=== PATIENT | female | born 1970 | race Caucasian/White ===

== ENCOUNTER 2018-07-06 21:57 | Inpatient (IN) | payer MEDICAID ==
--- NOTE | 2018-07-06 22:04 | EDPHY ---
H & P Source: Patient, EMS Time Seen by Provider: 07/06/18 22:04 HPI/ROS: HPI CHIEF COMPLAINT: Alcohol intoxication, bipolar disorder HISTORY OF PRESENT ILLNESS: Patient 47-year-old female she staying at a local hotel, the hotel staff called 911 for EMS to check on her as they noticed her being in the lobby a multiple times getting food and appeared highly intoxicated acting strange. According to EMS she is from [place]. She just the past few days have been here. According to EMS when they entered hotel room she had a large amount of liquor bottles throughout her tell room. She has been drinking alcohol. She arrived to the emergency room and is highly intoxicated with alcohol however refusing to answer any of my questions. Reported by EMS that she has history bipolar possibly be off of her medications. Past Medical History: Unknown except per report EMS bipolar disorder, alcoholism Past Surgical History: No recent surgical history Social History: Alcohol this evening. From [place]. Family History: Noncontributory ROS REVIEW OF SYSTEMS: 10 Systems were reviewed and negative with the exception of the elements mentioned in the history of present illness. Exam Constitutional intoxicated, smells of alcohol triage nursing summary reviewed, vital signs reviewed, awake/alert. Eyes normal conjunctivae and sclera, EOMI, PERRLA. HENT normal inspection, atraumatic, moist mucus membranes, no epistaxis, neck supple/ no meningismus, no raccoon eyes. Respiratory clear to auscultation bilaterally, normal breath sounds, no respiratory distress, no wheezing. Cardiovascular rate normal, regular rhythm, no murmur, no edema, distal pulses normal. Gastrointestinal soft, non-tender, no rebound, no guarding, normal bowel sounds, no distension, no pulsatile mass. Genitourinary no CVA tenderness. Musculoskeletal no midline vertebral tenderness, full range of motion, no calf swelling, no tenderness of extremities, no meningismus, good pulses, neurovascularly intact. Skin pink, warm, & dry, no rash, skin atraumatic. Neurologic awake, alert and oriented x 3, AAOx3, moves all 4 extremities equally, motor intact, sensory intact, CN II-XII intact, normal cerebellar, normal vision, slurring her speech intoxicated. Psychiatric normal mood/affect. Heme/Lymph/Immune no lymphadenopathy. Differential Diagnosis: Includes but is not limited to in a particular order acute alcohol intoxication, substance abuse, polysubstance abuse, drug intoxication mood disorder, damien, bipolar disorder Medical Decision Making: Plan for this patient IV establishment blood draw, drug screen, alcohol level, mental health evaluation. Re-evaluation: According to nursing staff mom called from [place] 1 states that she has extensive history bipolar, is recovering alcoholic did not recommend that she travels however she is here for an arc conference and traveled against her mom's wishes she thinks she has to mentally unstable to travel. Blood work reviewed electrolytes appropriate. [place] level very low. Serum alcohol level pending. Serum alcohol level 354. (Leonard Raman) Constitutional: Initial Vital Signs Temperature (C) 36.9 C 07/06/18 22:01 Heart Rate 90 07/06/18 22:01 Respiratory Rate 16 07/06/18 22:01 Blood Pressure 147/95 H 07/06/18 22:01 O2 Sat (%) 95 07/06/18 22:01 O2 Delivery Mode Room Air Allergies/Adverse Reactions: No Known Allergies Allergy (Unverified 07/06/18 22:06) Home Medications: Medication Instructions Recorded Clonidine 07/06/18 [place] Horse Carbonate 07/06/18 MIRTAZAPINE 07/06/18 traZODone 07/06/18 Medical Decision Making ED Course/Re-evaluation: 0700AM: Signed over to m1 hold. Needs eval. (Leonard Raman) I took over care of this patient at 7:00 a.m.. This patient is on an M1 hold for acute psychosis and alcohol intoxication, awaiting evaluation by [facility]. (Gina Duvall) Other Provider: Care assumed at 2:[address] Duvall with plan for inpatient placement , the patient presenting with alcohol intoxication but bipolar disorder. 1656: The patient will be transferred to [facility] for inpatient psychiatric hospital bed not available at this facility, in stable condition; accepting physician is Dr. Chandan Neri. EMTALA form completed. (Matt Corcoran) - Data Points Laboratory Results: Laboratory Results 07/06/18 22:51 07/06/18 22:51 Medications Given: Discontinued Medications Chlordiazepoxide HCl (Librium) 50 mg PO EDNOW ONE Stop: 07/07/18 07:35 Last Admin: 07/07/18 08:10 Dose: 50 mg Chlordiazepoxide HCl (Librium) 50 mg PO EDNOW ONE Stop: 07/07/18 16:14 Last Admin: 07/07/18 16:14 Dose: 50 mg Ibuprofen (Motrin) 600 mg PO EDNOW ONE Stop: 07/07/18 13:46 Last Admin: 07/07/18 13:56 Dose: 600 mg Lorazepam (Ativan) 1 mg PO EDNOW ONE Stop: 07/07/18 11:29 Last Admin: 07/07/18 11:48 Dose: 1 mg Olanzapine (Olanzapine) 5 mg PO ONCE ONE Stop: 07/06/18 23:37 Last Admin: 07/06/18 23:37 Dose: 5 mg Departure - Departure Disposition: [facility] Clinical Impression: Alcoholic intoxication Qualifiers: Complication of substance-induced condition: uncomplicated Qualified Code(s): F10.920 - Alcohol use, unspecified with intoxication, uncomplicated Bipolar disorder Qualifiers: Active/Remission status: currently active Current bipolar episode type: manic Current episode severity: moderate Qualified Code(s): F31.12 - Bipolar disorder , current episode manic without psychotic features, moderate Condition: Fair Referrals: Patient,NotPresent [Unknown] - As per Instructions
[2018-07-06 22:59] LABS: PLATELET COUNT 361 10^3/uL (150-400)
[2018-07-06] MEDS ORDERED: OLANZapine 5 MG TAB ONE (23:29)
[2018-07-06] MEDS ORDERED: OLANZapine 5 MG TAB PO ONE (23:36)
[2018-07-07] MEDS ORDERED: chlordiazePOXIDE 25 MG CAP PO ONE ×2 (07:34→16:13)
[2018-07-07] MEDS ORDERED: LORazepam 1 MG TAB PO ONE (11:28)
[2018-07-07] MEDS ORDERED: LORazepam 1 MG TAB ONE (11:29)
--- NOTE | 2018-07-07 12:53 | ASMTTLCEVL ---
TLC Evaluation - Basic Information Evaluation Start Date and 07/07/2018 10:00 AM Time Hospital Status Answers: M1 Hold 72-hr M1 Hold Start Date 07/06/2018 11:33 PM and Time Patient statement Notes: Im an alcoholic. Katja been to many Psychiatrists nothing has helped me. I just had 45 days of sobriety and relapsed on I believe because my Doctor took me off of Vivance cold turkey starting . Im ADHD, maybe bipolar disorder. I get more depressed, not the highs. I dont have damien except when I am drinking Narrative Notes: Pt is a 47 year old female per ED report was staying at a local hotel, the hotel staff called 911 for the EMS to check on her as they noticed her being in the lobby multiple times getting food and appeared highly intoxicated and acting strangely. According to EMS she is from [place]. She just the past few days traveled to [facility]. According to EMS when they entered her hotel room she had a large amount of liquor bottles throughout her room. Pt arrived to the [facility] ED in a highly intoxicated state and was refusing to answer any questions upon her arrival. According to the nursing staff pts mother had called from [place] stating that she has an extensive history of bipolar disorder, is a recovering alcoholic and mother had recommended she not travel however she is here for a conference and traveled against her mothers wishes since mother had felt she was not mentally stable to travel. Pts BAL was .354 at 22:51 on 07/06/18. Pts lithium level was 0.2. Pt was seen for clinical evaluation when her Breathalyzer was below .08 Per M1 hold pt has bipolar disorder and is off her medications presenting in a psychotic state. Pts mother has great concerns for pt.s mental health and safety. Diagnosis History Notes: Pt reported she has been diagnosed with bipolar disorder and also in the past ADHD. Prior suicide attempts Notes: Pt denies any past history of any suicide attempts. Pt did report last night she was expressing suicidal thoughts. Prior hospitalizations Notes: Pt stated she has been hospitalized about 7 times for alcohol and depression including 3 prior rehabs. Treatment Responses Notes: Pt stated she does not accept her bipolar dx. Per mother pt has been to numerous therapists and Psychiatrists throughout her life. History of violence Notes: Pt stated she has been hospitalized about 7 times for alcohol and depression including 3 prior rehabs. Psychiatrist: Dr Jacquelyn Wilder Medications (name, dosage, route, freq uency) Notes: Pts medications include: trazodone, mirtazapine, lithium carbonate, clonidine Allergies/Reaction Notes: No known allergies or drug interactions. Sleep Notes: Pt reported abnormal sleep pattern recently sleeping excessively spending up to 12-14 hours a night. Appetite Notes: Pt indicated since going off Vivance she has been eating sweets constantly and feels she has gained weight even in a few days. Medical/Surgical history Notes: Pt denied any medical problems. Substance use history (frequency, intensity, his tory, duration) Notes: Pt reported she started drinking on a regular basis at the age of 30. Her drinking as reported by pt became problematic about 8 years ago. Pt denied other substance use/abuse except for alcohol. Family composition Notes: Pt is single, never . She has 2 sisters, one of which is her twin and another brother. Her siblings reside on the [facility]. Pts parents are and reside in [place]. Need for family Answers: Yes participation in patient's care Family psychiatric/substance abuse history Notes: Pt reported her mother has a hx of major depression, possibly bipolar disorder. Developmental history Notes: Pt was born and raised on a farm in [place]. Pt denied any childhood diagnosis including no diagnosis of ADD or ADHD. Pt denied any hx of any childhood physical, emotional or sexual abuse. Abuse concerns Answers: None Marital status/children Notes: Pt is single, never with no children. Living situation Notes: Pt now lives on her parents farm in a single family home on the farm property. Previously she had lived in [place] for about 20 years. Sexual history/orientation Notes: Pt is not currently in a relationship. Peer support/family strengths Notes: Pt reported feeling as if she has some friends who are supportive. Education level/history Notes: Pt stated she was an average student academically and her belief is undiagnosed ADD or ADHD may of impacted her academic performance. Work history Notes: Pt works as a graphic technician. Pt reported she has not had any invoices for work for the past 2 years. Notes: No hx. Legal Notes: Pt reported she was recently arrested for failing to show up at court for a DUI arrest court appearance. Pt stated she had just got her license returned. She gave a hx of 2 DUI arrests. Jain/Spiritual Notes: Pt denied any anabaptist or spiritual beliefs that would interfere with his treatment. Leisure Notes: Pt stated she enjoys working with her hands especially doing wood projects. Collateral Notes: Collateral inform was obtained from pt.'s mother, Mare @ [phone]. Mother expressed deep concerns about pt's safety related both to alcohol abuse and mood disorder which significantly impacts pt's lifestyle. Mother was in agreement pt is in need of inpt MH treatment. Mother described pt.'s erratic, impulsive behavior and high risk lifestyle including incidents when she would walk barefoot in freezing temputures or jump into a smallwood wiht all her clothes on. Patient's strengths Answers: Artistic/Creative/Musical (Please select at least TWO strengths): Intelligent Supportive Family TLC Evaluation - Mental Status Exam Appearance: Answers: Disheveled Eye Contact: Answers: Intermittent Mood: Answers: Elevated Irritable Affect: Answers: Anxious Apprehensive Congruent w/ Mood Distracted Expansive Guarded Hyperactive Indifferent Labile Nervous Sad Behavior: Answers: Cooperative Guarded Impulsive Restless Speech: Answers: Coherent Dramatic Excessive Hyperverbal Pressured Thought Process: Answers: Disorganized Racing Thoughts Tangential Insight: Answers: Poor Judgement: Answers: Poor Manic Signs/Symptoms Answers: Distractibility Grandiosity Impulsivity Irritability Mood Swings Pressured Speech Racing Thoughts Depression Answers: Difficulty Concentrating Signs/Symptoms: Diminished Interest Diminished Pleasure Withdrawn Worthlessness Anxiety Signs/Symptoms Answers: Generalized Anxiety Hallucinations: Answers: None Current Stage of Change Answers: Precontemplation Pt reported to have Answers: Yes suicidal/self-injuring ideation/behavior? Pt reported to be making Answers: Yes suicidal/self-injuring threats? Pt reported to have Answers: No aggression/assault ideation/behavior? Pt reported to be making Answers: No aggression/assault threats? Pt exhibits inability to Answers: No care for self/grave disability? Ideation/behavior is Answers: No chronic? Patient has a specific Answers: No plan? Ideation has Answers: No delusional/hallucinatory content? History of Answers: No suicidal/self-injuring ideation, behavior, or threats? History of Answers: No aggressive/assaultive ideation, behavior, or threats? History of serious Answers: No physical harm to self/others while in treatment setting? TLC Evaluation - Suicide/Homicide Risk Suicide Risk Factors: Answers: Agitation Alcohol/Heavy Drug Use Anxiety/Panic, Severe Bipolar Disorder Hopelessness Impulsivity Intoxication Rapid Mood Shifts None Current Suicidal Answers: No Ideation? Current Suicidal Ideation Answers: Yes in the Past 48 Hours? Current Suicidal Ideation Answers: No in the Past Month? Suicide Internal Answers: Absence of Psychosis Protective Factors: Suicide External Answers: Responsibility to Pets Protective Factors: Ranking of patient's Answers: Moderate suicidal risk: Ranking of patient's Answers: Low homicidal risk: TLC Evaluation - Wrap-up BDI Total Score: 23 BDI Question #2 Score: 1 BDI Question #9 Score: 0 BSS Total Score: 0 AXIS I Diagnosis (include DSM-V and ICD-10 codes), must also be entered in [employer], which is the source of truth. Notes: Bipolar I Disorder, current or most recent episode depressed, severe 296.53 (F31.4) Alcohol Use Disorder, severe 303.90 (F10.20) Evaluation End Date and 07/07/2018 12:45 PM Time (HH:MM): Date Signed: 07/07/2018 12:53 PM Electronically Signed By:Fe Horn
[2018-07-07] MEDS ORDERED: IBUPROFEN 600 MG TAB PO ONE ×2 (13:30→13:45)
[2018-07-07] MEDS ORDERED: THIAMINE HCL 100 MG TAB ONE (13:31)
[2018-07-07] MEDS ORDERED: chlordiazePOXIDE 25 MG CAP ONE (16:04)
--- NOTE | 2018-07-07 16:21 | ASMTTCLDSP ---
TLC Discharge Disposition Disposition Notes: Notes: In consultation with ED Physician, Damaris Marcial and on-call Psychiatrist, Dr Chandan Neri both concurred that pt appears to meet 27-65 criteria requiring psychiatric hospitalization as pt appears to be at risk of harm to self due to a mental illness condition. Discharge Concerns/Recommendations: Notes: Pt will be admitted to 3 Was patient given the Answers: Yes Inpatient Behavioral Health Prohibited Belongings List while in the ED? For inpatient Chandan Neri admission, the following psychiatrist agreed to accept patient for admission to Behavioral Health ([facility]): Type of Hold: Answers: M1/72-hour Hold Hold initiated by: Answers: ED Physician Date Signed: 07/07/2018 04:20 PM Electronically Signed By:Fe Horn
[2018-07-07] MEDS ORDERED: NICOTINE POLACRILEX 2 MG GUM B PRN (19:51)
[2018-07-07] MEDS ORDERED: MAG HYDROX/AL HYDROX/SIMETH 30 ML UDCUP PO PRN (19:51)
[2018-07-07] MEDS ORDERED: MAGNESIUM HYDROXIDE 30 ML UDCUP PO PRN (19:51)
[2018-07-07] MEDS ORDERED: ACETAMINOPHEN 325 MG TAB PO PRN (19:51)
[2018-07-07] MEDS ORDERED: OLANZapine DISINTEGR 10 MG TAB PO PRN (19:51)
[2018-07-07] MEDS ORDERED: PROMETHAZINE HCL 25 MG TAB PO PRN (19:53)
[2018-07-07] MEDS ORDERED: chlordiazePOXIDE 25 MG CAP PO PRN (19:53)
[2018-07-07] MEDS ORDERED: THIAMINE HCL 100 MG TAB PO ONE (19:53)
[2018-07-07] MEDS ORDERED: IBUPROFEN 200 MG TAB PO PRN (19:53)
[2018-07-07] MEDS ORDERED: PROMETHAZINE HCL 25 MG SUPPR PR PRN (19:53)
[2018-07-07] MEDS ORDERED: LORazepam 0.5 MG TAB PO PRN (20:23)
--- NOTE | 2018-07-07 21:57 | GCON ---
The patient is a pleasant 47-year-old female with a history of anxiety, depression, and alcoholism, calvin davenport was brought in gravely disabled and acutely intoxicated yesterday. She had been living in a hotel . She currently lives in [place], but was in [place] to attend to some business matters. She was broug ht in by people who felt that she was intoxicated far beyond the point of safety. When I speak with the patient, she has been in the hospital for about 24 hours and she is currently sobered up and bein g treated for alcohol withdrawal. She has had alcohol withdrawal without seizures in the past. Michael r been jaundiced. She describes her urge to drink is largely driven by anxiety and depression. It sounds like years ag o, living in [place] she began to drink heavily in conjunction with her job, and with her comorbi d mental illness it just got worse. No recent fever, chills, cough, sputum, nausea, vomiting, diarrh ea. REVIEW OF SYSTEMS: Complete 10-point review of systems conducted and negative except as noted in the HPI. PAST MEDICAL HISTORY: Depression, anxiety, alcoholism. ALLERGIES: No known drug allergies. SOCIAL HISTORY: Alcohol as in the HPI. No drugs. No tobacco. Currently living in [place]. HOME MEDICATIONS: Clonidine, lithium carbonate, mirtazapine, and trazodone. FAMILY HISTORY: Reviewed and unremarkable. PHYSICAL EXAMINATION: VITAL SIGNS: Temp 37, blood pressure 159/85, pulse 90, breathing 16 times a m inute, 97% on room air. GENERAL: No acute distress. HEENT: Sclerae are anicteric. Oropharynx alvin ar. Mucous membranes moist. NECK: Supple. No lymphadenopathy or JVD. LUNGS: Clear to auscultati on bilaterally. HEART: S1, S2. ABDOMEN: Soft, nontender, nondistended. LOWER EXTREMITIES: Witho ut edema. Calves nontender. SKIN: Without rash. NEUROLOGIC: Nonfocal. LABS: Tox screen is negative other than an alcohol level of 354. Sodium 141, potassium 3.9, chlorid e 105, bicarb 23, BUN 12, creatinine 0.7, glucose 90. Beta hCG is negative. CBC: White count 8, he matocrit 41, MCV is low at 81.3, platelets are 361,000. I discussed the case with Leonard Raman MD. ASSESSMENT/PLAN: A 47-year-old female with alcoholism and anxiety here, gravely disabled. 1. Anxiety. I think this is somewhat crippling anxiety and is probably largely the impetus behind h er alcohol use. She is going to be hospitalized at [facility] for further management. 2. Alcohol use. The patient was very intoxicated, was what got her here. She has been treated with success with Librium. I might recommend continuing this on a daily basis. I will not write for it now. She does not appear to need it and she declined it. 3. Microcytosis, probably due for iron studies. This can be attended once she has been discharged f [facility]. 4. Hypertension. She is in mild alcohol withdrawal. I would follow. Thank you for this consultation. Hospital Medicine will not follow. /[id number]/MODL
[2018-07-07] MEDS ORDERED: MELATONIN 3 MG TAB PO PRN (22:06)
[2018-07-07] MEDS ORDERED: traZODone 50 MG TAB PO PRN (22:06)
[2018-07-07] MEDS ORDERED: hydrOXYzine HCL 25 MG TAB PO PRN (22:06)
[2018-07-08] MEDS: THIAMINE HCL 100 MG TAB PO SCH (10:54)
[2018-07-08] MEDS: MULTIVITAMINS 1 EACH TAB PO SCH (10:54)
[2018-07-08] MEDS: OMEGA-3 FATTY ACIDS 1,000 MG CAP PO SCH (10:54)
[2018-07-08] MEDS: FOLIC ACID 1 MG TAB PO SCH (10:55)
--- NOTE | 2018-07-08 11:37 | ASMTBHMTP ---
Master Treatment Plan Master Treatment Plan Answers: Mood Instability without for: Psychosis Date: 07/08/2018 Diagnosis on Admission: Bipolar I Disorder Expected length of stay: 3-5 Days Reason for admission: Notes: Per TLC Evaluation - Pt. is a 47 year old female per ED report was staying at a local hotel, the hotel staff called 911 for the EMS to check on her as they noticed her being in the lobby multiple times getting food and appeared highly intoxicated and acting strangely. According to EMS she is from [place]. She in just the past few days traveled to the [facility]. According to MED when they entered her hotel room she has a large amount of liquor bottles throughout her rooms. Pt. arrived at the [facility] ED in a highly intoxicated stated and was refusing to answer any questions upon her arrival. According to the nursing staff pt's mother had called from [place] stating that she has an extensive history of bipolar disorder, is a recovering alcoholic and mother had recommended she not travel however she is here for a conference and traveled against her mother's wishes since mother felt she was not mentally stable to travel. Pt's BAL was .354 at 22:51 on 07/06/18. Pt's lithium level was 0.2. Patient's stated presenting problems: Notes: "I'm an alcoholic. A highly struggling alcoholic". Pt. stated she was staying at her hotel and meet someone out front and then pt remembers waking up in the hospital. Pt. stated she must have blacked out. Patient's goals for treatment: Notes: "Want to be sober and not numb". "Want to enjoy life". "Want to be reliable" Patient's strengths: Notes: "Hyperly attentive, intelligent and curious." Identify supports outside of hospital: Notes: Parents Discharge criteria: Notes: Patient will demonstrate more stable mood by discharge. Initial disposition plan/considerations: Notes: Return home to [place] Master Treatment Plan Required Signatures Psychiatrist signature: Answers: Chandan Neri MD: RN on-shift signature: Answers: RN: Patient signature: Answers: Patient: Date Signed: 07/08/2018 11:36 AM Electronically Signed By:Ashly Mcdonald
--- NOTE | 2018-07-08 16:01 | BAPA ---
DATE OF SERVICE: 07/08/2018 CHIEF COMPLAINT: "I'm an alcoholic. I've been to many psychiatrists, nothing has helped me. I just had 45 days of sobriety and relapsed on ." HISTORY OF PRESENT ILLNESS: The patient is a 47-year-old single female who lives in [place]. She came to [place] on business. She has been staying at a local hotel. The hotel staff called on 07/06 because the patient seemed intoxicated and had been acting strangely in the hotel lobby. When EMS entered her hotel room, they found a large amount of liquor bottles scattered throughout her room. She arrived in the [facility] ED highly intoxicated and was refusing to answer any questions on arrival. According to the nursing staff, the patient's mother called from [place] stating that the patient had an extensive history of mental health issues including a recent diagnosis of bipolar disorder. Mother also told ED staff that the patient was a recovering alcoholic. Patient's BAL in the ED was 0.354. Her lithium level was 0.2. According to the patient, she had not been taking her medication in several days. Patient did not endorse any thoughts of suicide and she did not present psychotic. While she was in the emergency department she did not endorse any hallucinations, paranoid delusions. She was not making statements. She was not making delusional statements and her thought process was intact. When this MD met with the patient on the inpatient Behavioral Health Services Unit she was appropriately dressed, well-groomed, pleasant, anxious, she had a slight tremor. She was talking rapidly, but did not have pressured speech. She paused and waited for the MD to make responses. She was definitely interruptible. She maintained good eye contact. She could be quiet for long periods of time while MD was speaking. She did not endorse racing thoughts. She denied increase in goal-directed activity. She denied decreased need for sleep. She did not endorse racing thoughts or grandiose delusion. She did not have elated or elevated mood. Patient told this MD that she has been disappointed in the mental health care that she has been receiving in her hometown in [place]. She says that she had a psychiatrist who was prescribing for her for about a year and a half, but she says that she switched to a new psychiatrist recently because she did not feel like her old psychiatrist "was helping me." She said that her previous psychiatrist did not think that she had bipolar disorder. She says that he told her that she had attention deficit hyperactivity disorder and he had prescribed Vyvanse for her. He also said that she had an anxiety disorder and he prescribed BuSpar and Celexa. The patient says that he did not seem to understand "how anxious I am." She said that she did not discuss with him her chronic alcohol dependence. He was not aware of the extent of her drinking. She said that she has seen a new psychiatrist for a few months and she had to go to a different town because there was only 1 psychiatrist in her town. She said that the new psychiatrist gave her "a different diagnosis." She said that her new psychiatrist diagnosed her with bipolar disorder and told her that she did not have attention deficit hyperactivity disorder and told her that she was not going to continue to prescribe Vyvanse and she also wanted the patient to discontinue taking BuSpar and she prescribed lithium for the patient. The patient says at the time that she started seeing her new psychiatrist she had stopped drinking, but said that she relapsed when she came to [place]. She says 1 of the reasons for her relapse was "the stress" of taking on a new job. 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 The patient states that she has done rehab in the past and did not find it helpful. She says that she does not like 12 step programs and says that she is looking for "a 3rd opinion" because she does not "know if I can trust my psychiatrist" in [place]. The patient says that she does not feel like she has gotten good mental health care because she has gotten 2 different opinions about her diagnoses from 2 different psychiatrists and they have both recommended different medications. She said she is "very confused." She says she had only been taking a very low dose of lithium. She had been on 150 mg but said that she had not been taking it regularly and she has only been on it for a couple of months. She said that before she left [place] her psychiatrist had stopped Vyvanse and told her to discontinue taking BuSpar and to increase her lithium from 150 mg to 300 mg. The patient said she had only taken 1 dose of that and had not been taking her lithium since she came to [place]. At the current time, the patient is not endorsing any thoughts about hurting herself or anyone else. She is not demonstrating any unsafe behavior. She states she did not have thoughts of harming herself when she was in her hotel room. PAST PSYCHIATRIC HISTORY: Please see above. Patient has been followed by a 2 different outpatient psychiatrists in [place]. She recently switched to a new psychiatrist who diagnosed her with bipolar disorder, discontinued her Vyvanse and buspirone, and started her on lithium. Patient admits that she has not been compliant with medications. She does not take her medications every day and has not been taking medications this week and has been drinking. Patient says that she has never been in a psychiatric hospital before, but says that she has been hospitalized 7 times, but told the [facility] senior db2 systems programmer that she had been hospitalized 7 times for alcohol and depression including 3 prior stays in rehab. Patient told this MD that she had only ever been in the hospital for substance use disorder, but patient was not clear whether or not those admissions were to a psychiatric hospital or only to rehab facilities. Patient denies ever making a suicide attempt. Patient's mother told the ED staff that the patient has seen "numerous therapists and psychiatrists throughout her life. " ALLERGIES: Patient has no known drug allergies. CURRENT MEDICATIONS: The patient is currently prescribed lithium. She was recently on 150 mg p.o. at bedtime; that was increased to 300 mg p.o. at bedtime but patient has not taken any of the new dose. She is also being prescribed trazodone 50 mg p.o. at bedtime, clonidine 0.1 mg p.o. daily, Celexa 20 mg p.o. daily. She had been on BuSpar 30 mg p.o. at bedtime, but she says that was stopped several weeks ago. She had also been on Vyvanse and that was stopped several weeks ago. She takes fish oil 1000 mg p.o. daily. She says that she has also been prescribed Antabuse 250 mg p.o. daily, but she says she does not take it regularly. Patient admits that she has not taken any of her medications for the last 5 days and says that it "could have been longer." The patient says that even before she relapsed and started drinking again she said that she did not always remember to take her medications as prescribed. LABS: Done in the [facility] ED. White cell count was 8.53, hemoglobin 14.1, hematocrit 41.4, platelet count 361, sodium 141, potassium 3.9, chloride 105, BUN 12, creatinine 0.7, glucose 90, calcium 8.8. Beta hCG was negative. Patient's salicylate and acetaminophen levels were both undetected. Her blood alcohol level on 07/06 was 354. Her lithium level was undetected, was actually less than 0.2, and her urine drug screen was negative for all other drugs of abuse. PAST MEDICAL HISTORY: Patient had a history and physical exam done by Kirill Li, the hospitalist on the inpatient unit. He noted no acute abnormal findings. She did have slightly elevated blood pressure, but this is likely due to alcohol withdrawal; it is not a chronic condition for the patient. SOCIAL HISTORY: Patient states she was born and raised on a [place] in [place]. Her parents are and they still live in [place]. She lives in a single family home on the same property as her parents. She has 2 sisters, 1 of which is her twin, and she also has a brother. All of her siblings live on the [facility]. Patient is single and has never been . Prior to moving back to [place] the patient had lived in [place], where her siblings live, for 20 years. Patient was never diagnosed with any type of learning disability or attention deficit hyperactivity disorder as a child. She says she was an average student academically. She currently works as a photographic processor. She states that she has not had any clients for the last 2 years. FAMILY HISTORY: Patient states that her mother has a history of major depressive disorder. No other family history of substance abuse or mental illness was reported. SUBSTANCE USE HISTORY: Patient states that she started drinking alcohol on a daily basis at the age of 30. She says that her drinking became problematic about 8 years ago. She denies any other substance use besides alcohol. She is not very forthcoming with the amount she drinks or the frequency that she has been drinking. She does report relapsing since she came to [place] and says that she has been drinking for the last several days in her hotel room. She does not remember how much. Her BAL was 354 in the ED. Patient states that she has done rehab numerous times. Says that she does not believe that it was very effective. She says she does not like 12 step programs and she has avoided doing them. She is not currently getting any type of support or treatment for her substance use disorder. LEGAL HISTORY: Patient states that she has had multiple DUIs in the past. She says that she was recently arrested for failing to show up to court for a DUI. She states that she has had 2 DUIs in the past and just recently got her license returned. MENTAL STATUS EXAMINATION: This is an average height, appropriately dressed, well groomed woman sitting in a chair, wearing a T-shirt and jeans. She is alert and oriented x4. Her affect is anxious. She has a slight tremor. Her demeanor is appropriate. She makes good eye contact. Her speech rate is rapid and volume is normal. Her intellectual function appears to be average based on her vocabulary, fund of knowledge and educational history. She currently denies feeling sad, helpless, hopeless, worthless, but does endorse feeling anxious. She denies any symptoms of psychosis including denying auditory and visual hallucinations, paranoid delusions, ideas of reference and any bizarre thoughts. There are no signs or symptoms of damien. She does not have racing thoughts, pressured speech, grandiose delusions, increased goal- directed activity, decreased need for sleep or elevated or elated mood. She denies any thoughts, plans or intentions to hurt herself or anyone else. Her thought process is linear and goal directed. Her insight and judgment both appear to be significantly impaired as evidenced by her recent relapse and continued alcohol use despite numerous negative consequences including its impact upon her mood, her physical health and her legal problems. IMPRESSION: 1. Substance-induced mood disorder. 2. Rule out generalized anxiety disorder. 3. Rule out major depressive disorder. 4. Alcohol use disorder, severe. 5. Lack of social support. 6. Under employed. 7. Financial problems. 8. Lack of contact with her siblings. 9. Financial reliance upon her parents who are her main social support system. They are elderly and live on [place] farm. 10. Limited access to mental health provider. She states that she had to go to a town 30 miles away to get a 2nd opinion to see another psychiatrist when she wanted to change psychiatrists. 11. Lack of compliance and adherence to medications. 12. Chronic substance abuse. 13. Chronic alcohol dependence which has not been successfully treated. 14. Lack of follow through with treatment. PLAN: 1. Admit patient to the inpatient Behavioral Health Services Unit on [address] on an M1 hold. 2. Monitor closely for safety. Patient is currently not exhibiting any signs of psychosis or unsafe behavior. She is acting appropriately. She is denying any thoughts, plans or intents to hurt herself or anyone else. 3. We will continue to monitor and observe the patient. She is currently on a [facility] protocol to monitor for alcohol withdrawal symptoms. She had an elevated BP and slightly elevated pulse earlier today, but she did not endorse any other symptoms of withdrawal. When this MD met with her, she had a slight tremor, but she denied diaphoresis. She denied shortness of breath. She denied nausea , vomiting. She stated that in the past when she has stopped drinking, it is "much worse." She says she does not feel "bad at all right now." She has Librium ordered per the [facility]. Will continue to monitor her for any worsening of symptoms. Patient agreed to notify the staff if she were to start feeling worse. 4. MD did discuss the patient's long history of medication use and the recent changes that have been made to her medications. The MD attempted to educate the patient about the risks, benefits, and side effects of psychotropic medications and the significant risk of potential adverse effects from combining psychotropic medications with alcohol. MD talked in general terms about the effect of alcohol, both on mood, cognition, judgment as well as physical health and mental wellness. The patient acknowledges that she feels more anxious when she is drinking and knows that she gets more anxious when she has withdrawal symptoms, even when she goes from one day to the next before she has had her next dose of alcohol, if it has been several hours she will start feeling more anxious, she will get more edgy. She also reports having a harder time sleeping when she is drinking and says that it makes it harder for her to concentrate and attend to things. She has a harder time doing work or paying attention or sustaining her attention for any length of time. It is likely that many of the symptoms that led mental health providers to diagnose this patient with attention deficit disorder, anxiety disorder, and mood related disorders including bipolar and major depression, are symptoms that are also very strongly correlated with alcohol dependence. Patient states that she has not been clean and sober for more than 45 days outside of a rehab facility and that during all the time when she has taken medication she has been drinking. MD suggested that the patient needs to get into a serious sustained long-term substance use treatment program and a relapse prevention program including she needs to implement a plan to help live a sober lifestyle in order to make it possible to give her the most accurate diagnosis of any psychiatric condition or mental illness that she might have. This is the necessary 1st step to making sure that whatever treatment she gets is going to be appropriate for the symptoms that she is dealing with. The patient voiced to this MD her profound frustration that being on psychotropic medications "hasn't made me feel any better." MD said this is likely due to the fact that she has continued to drink or has had significant episodes of relapse while taking psychotropic medications. The patient is only minimally responsive to the MD's explanation and recommendations. She states that she does not want to go back to rehab and is not interested in doing a 12-step program. She says that she is willing to think about doing an intensive outpatient program, but she has limited access to those types of resources where she lives in [place]. MD suggested that she might consider going to a rehab facility where she can do step-down in a sober living environment. 5. MD did not restart any of the patient's psychotropic medications given the fact that the patient is still in early days of stopping drinking and needs to have her alcohol detox addressed as a 1st priority, and for all the reasons mentioned above about the difficulty in making an accurate diagnosis of a mood or anxiety related disorder in the face of the patient's ongoing chronic alcohol dependence. The patient said that she understood the MD's concerns and verbalized her understanding of the risks and potential for adverse effects from ongoing substance use as well as the potential drug interactions. If the patient were not to be in a serious long-term treatment program to address her substance use, the risk of her continuing to drink or to relapse is extremely high and the risk of prescribing this patient medications when she is not actively seeking treatment for her substance use disorder is also very high. 6. Estimated length of stay is 2-3 days. The patient states that she is going to fly back to [place] immediately upon discharge and follow up with mental health providers there. /[id number]/MODL MTDD
[2018-07-09 06:50] VITALS: BP 118/79
[2018-07-09] MEDS: MULTIVITAMINS 1 EACH TAB PO SCH (08:44)
[2018-07-09] MEDS: OMEGA-3 FATTY ACIDS 1,000 MG CAP PO SCH (08:45)
[2018-07-09] MEDS: THIAMINE HCL 100 MG TAB PO SCH (08:45)
[2018-07-09] MEDS: FOLIC ACID 1 MG TAB PO SCH (08:45)
--- NOTE | 2018-07-09 09:07 | PDMN ---
Medical Necessity Medical necessity: [facility] [id number] Substance-Related Disorders, Inpatient Behavioral Health Level of Care, Adult; 40 yo w/ substance induced mood d/o, r/o generalized anxiety d/o, r/o major depressive d/o, M1 hold, brought in via ambulance to ED w/ acute alcohol intoxication and 'acting strangely.'
== END 2018-07-09 18:15 | disposition home or self-care (01) | DRG 775 ==
LOC: BBEH 07-07 18:38
PROVIDERS: ADMIT Psychiatry & Neurology Psychiatry; ATTEND Psychiatry & Neurology Psychiatry
DX: F10.94 Alcohol use, unspecified with alcohol-induced mood disorder (principal); F10.229 Alcohol dependence with intoxication, unspecified; Z91.14 Patient's other noncompliance with medication regimen; I10 Essential (primary) hypertension
CPT/HCPCS: 80305; G0480